=== PATIENT | female | born 1935 | race Caucasian/White ===

== ENCOUNTER → 2019-10-10 19:14 | Outpatient (ROUT) | payer MEDICARE, OTHER, SELFPAY ==
[2019-10-10 19:21] LABS: Add Manual Diff / Slide Review NO; Basophils Absolute Auto 0 /uL (0-100); Basophils Percent Auto 0.6 % (0-2); Eosinophils Absolute Auto 200 /uL (0-450); Eosinophils Percent Auto 2.3 % (2-4); Hematocrit 41.5 % (36-46); Hemoglobin 13.9 g/dL (12.0-16.0); Lymphocytes Absolute Auto 2200 /uL (1100-4500); Lymphocytes Percent Auto 28.7 % (25-40); Mean Corpuscular HGB Conc 33.6 % (30-36); Mean Corpuscular Hemoglobin 30.8 PG (26-34); Mean Corpuscular Volume 91.8 fL (80-100); Monocytes Absolute Auto 600 /uL (0-900); Monocytes Percent Auto 7.9 % (3-14); Neutrophils Absolute Auto 4700 /uL (1500-7000); Neutrophils Percent Auto 60.5 % (50-75); Platelet Count 229 X10^3/uL (150-400); Red Blood Cell Count 4.52 X10^6/uL (4.0-5.2); Red Cell Distribution Width 13.5 % (11.6-14.8); White Blood Cell Count 7.7 X10^3/uL (4.5-11.0)
[2019-10-10 19:31] LABS: Blood Urea Nitrogen 14 mg/dL (7-17); Calcium 9.7 mg/dL (8.4-10.2); Carbon Dioxide 29 mmol/L (22-32); Chloride 102 mmol/L (98-107); Estimated Glomerular Filt Rate > 60.0 mL/min (>60); Glucose 87 mg/dL (80-110); HEMOLYSIS < 15 (0-50); Sodium 141 mmol/L (137-145)
[2019-10-10 19:59] LABS: TSH w/ Reflex to FT4 2.03 uIU/mL (0.47-4.68)
== END ==
PROVIDERS: Visit Provider Internal Medicine
DX: L65.9 Nonscarring hair loss, unspecified (principal)
CPT/HCPCS: 80048; 84443; 85025

== ENCOUNTER 2022-11-11 15:10 | Emergency (ER) | payer MEDICARE, OTHER, SELFPAY ==
[2022-11-11 15:15] VITALS: BP 172/81; PULSE 90; RESP 18; TEMP 36.6; O2SAT 98; BMI 24.4
--- NOTE | 2022-11-11 16:48 | ED.GENADULT ---
HPI - General Adult General Chief complaint: Dental/Oral Stated complaint: lt jaw pain and swelling Time Seen by Provider: 11/11/22 16:20 Source: patient Mode of arrival: Ambulatory Limitations: no limitations History of Present Illness HPI narrative: 87-year-old female who is here for evaluation of left lower jaw discomfort. She was seen at the walk-in clinic the end of last week. Was prescribed penicillin for a dental infection. She states that she took the medication and developed a rash afterwards. She is never had a rash in the past with penicillin. She has multiple allergies to other medications. She is continued to have discomfort. She attempted to contact a dentist but states she can not get into see them for several weeks. She is not have any problems swallowing. No problems breathing. No fevers. She did sustain head injury many years ago and has quite a bit of sensitivity to light and sound. Will brought her in today was that she had pain with eating. Related Data Previous Rx's Medication Instructions Recorded penicillin V potassium 500 mg 500 mg PO QID 10 days #40 tabs 11/07/22 tablet Allergies Allergy/AdvReac Type Severity Reaction Status Date / Time Penicillins Allergy Mild Hives Verified 11/11/22 15:28 Review of Systems ENT Ears, Nose, Mouth, and Throat: Reports system reviewed and no additional complaints, except as documented Respiratory Respiratory: Reports system reviewed and no additional complaints, except as documented Integumentary/Breasts Skin/Breast: Reports system reviewed and no additional complaints, except as documented Neurologic Neurologic: Reports system reviewed and no additional complaints, except as documented Hematologic/Lymphatic On Anticoagulants: No Patient History Social History Smoking Status: Never smoker Smoking Status: Never smoker Exam Initial Vital Signs Initial Vital Signs: Vital Signs Temperature 97.8 F 11/11/22 15:15 Pulse Rate 90 11/11/22 15:15 Respiratory Rate 18 11/11/22 15:15 Blood Pressure 172/81 H 11/11/22 15:15 Pulse Oximetry 98 11/11/22 15:15 Oxygen Delivery Method 11/11/22 15:15 Const General: cooperative, comfortable and No ill appearing HENMT Mouth: oral mucosae normal, lip normal and No muffled voice Teeth and gingiva: other (Redness left lower buccal mucosa) Throat: posterior oropharynx normal Resp Effort & Inspection: normal respiratory effort Auscultation: clear to auscultation bilaterally Skin General: no rashes or lesions noted Course Vital Signs Vital signs: Vital Signs - 8 hr 11/11/22 15:15 11/11/22 17:08 Temperature 97.8 F Pulse Rate 90 88 Respiratory Rate 18 18 Blood Pressure 172/81 H Pulse Oximetry 98 94 Oxygen Delivery Method Room Air Room Air Medical Decision Making Differential Diagnosis Differential Diagnosis: Dental abscess, caries, cellulitis, and others Medical Records Medical records reviewed: Yes I reviewed the patient's medical records. MDM Narrative Medical decision making narrative: Physical exam today is consistent with a dental infection. There is no identifiable drainable abscess seen here in the ER. She is afebrile. No problems swallowing. No problems breathing. She does have a prescription for penicillin. She states she can not take clindamycin because of an allergy. She did develop a rash after the last time she took the penicillin but there was no problems breathing. She is never had a issue in the past and has taken penicillin multiple times. She was informed that ultimately she does need to follow-up with a dentist. Until then I did recommend that she start taking the penicillin once again. She was told that she could take some Benadryl as needed if a rash develops however the symptoms worsen or if she ever had any problems breathing or vomiting she needed to return to the emergency department. Patient expressed understanding and agreement. Discharge Plan Departure Patient Disposition: Home Clinical Impression: Dental abscess Instructions: DI for Dental Pain Activity Restrictions/Additional Instructions: I do recommend that you take the penicillin as directed. You can take some Benadryl if needed for any development of a rash. It is important that you follow-up with a dentist. Return to the emergency department for any new symptoms. Prescriptions: No Action penicillin V potassium 500 mg tablet 500 mg PO QID 10 Days Qty: 40 0RF Referrals: Miscellaneous,[facility] [Primary Care Provider] - Stand Alone Forms: Patient Portal/API
[2022-11-11 17:08] VITALS: PULSE 88; RESP 18; O2SAT 94
== END 2022-11-11 17:08 | disposition home or self-care (01) ==
PROVIDERS: Emergency Provider Emergency Medicine
DX: K04.7 Periapical abscess without sinus (principal)
CPT/HCPCS: 99281